=== PATIENT | male | born 1995 ===

== ENCOUNTER 2023-04-19 12:46 | Outpatient (RCR) | payer BC, SELFPAY | END 2023-04-20 15:42 | disposition home or self-care (01) | LOC: PT 12:46 | PROVIDERS: PCP Nurse Practitioner Primary Care; Visit Provider Psychiatry & Neurology Neurology | DX: R56.9 Unspecified convulsions (principal); S06.0X1S Concussion with loss of consciousness of 30 minutes or less, sequela | CPT/HCPCS: 97750 ==